=== PATIENT | male | born 1955 | race Caucasian/White ===

== ENCOUNTER 2025-04-02 14:01 | Emergency (ER) | payer MEDICARE, BC ==
[~2025-04-02] VITALS: Ht 180.3 cm; Wt 82.0 kg
[2025-04-02 14:26] VITALS: BP 170/72; PULSE 36; TEMP 97.7; O2SAT 98
[2025-04-02] MEDS: ketorolac trometh 15mg/ml vial 15 MG/ML ML IM ONE (16:09)
[2025-04-02 17:12] VITALS: RESP 16
[2025-04-02] MEDS ORDERED: NAPR-56 PO (18:07)
[2025-04-02] MEDS ORDERED: CYCL-1 PO (18:07)
--- NOTE | 2025-04-02 18:09 | Physician Documentation ---
History of Present Illness ~ Chief Complaint: Neck pain Stated Complaint: NECK PAIN Time Seen by MD: 15:34 OK to notify your PCP?: Yes Source: patient Mode of Arrival: POV Exam Limitations: no limitations HPI 70-year-old male presents with posterior neck pain since yesterday after waking up. He denies any falls, injuries or trauma to his neck. He reports not being able to sleep very well or find a comfortable position. He reports having a history of bradycardia in his heart rate usually is in the 30s over 40s and this is normal for him. He said he sees a emergency medical services coordinator for this and they are not concerned at this time. He denies any fever, recent illness, chills, confusion, headache, vision change, malaise, nausea, vomiting, rash or pain in the lower neck or down the spine. Medication Reconciliation Allergies: Coded Allergies: codeine (Unverified Adverse Reaction, Unknown, itchy and nausea, 04/02/25) Scheduled Cyclobenzaprine* (Cyclobenzaprine*), 1 TAB PO Q8H Naproxen (Naproxen), 1 TAB PO Q12H Past Medical History Smoking Status: Never smoker Review of Systems All Other Systems at this time: Reviewed and Negative Physical Exam Vital Signs: RN Vital Signs have been reviewed: Yes, Temperature: 97.7, Heart Rate: 36, Respiratory Rate: 16, BP: 170/72, Pulse Oximetry: 98, Weight: 82.000 Oxygen Flow Rate: 0 Pulse Oximetry Reflects: adequate oxygenation Physical Exam General: Alert, no apparent distress. HEENT: PERRL, EOMI, no injection, or periorbital ecchymosis. moist mucous membranes. Head atraumatic no bony deformities. Neck: Good neck flexion, decreased rotation and extension with pain. No cervical lymphadenopathy. Muscle tenderness along upper trapezius muscle to the skull. No midline tenderness or step-offs. Respiratory: Lungs clear, no respiratory distress. Chest: No accessory muscle use. Cardiovascular: Regular rate and rhythm, no murmurs. Gastrointestinal: Soft, nontender, nondistended. Bowels sounds present. Extremities: Normal range of motion, no deformity. Neurologic: Oriented x4. Psychiatric: Normal mood and affect. Skin: Normal color, warm and dry. No edema, no ecchymosis or rashes. Progress Results/Orders Reviewed/noted all lab results: Yes Results/Orders Completed Orders - LUANA LEIVA [employer] OPERATOR Ketorolac Trometh 15mg/Ml Vial (Toradol (04/02/25 16:00) Cyclobenzaprine Tablet (Flexeril Tablet) (04/02/25 16:00) Vital Signs 04/02/25 04/02/25 04/02/25 14:26 16:09 17:12 Temp 97.7 Pulse 36 Resp 16 16 16 B/P (MAP) 170/72 Pulse Ox 98 O2 Flow Rate 0 Medical Decision Making Additional info obtained from: family Findings 70-year-old male presents with bilateral upper trapezius muscle tightness and pain. He states that he has not been able to sleep well due to the pain or find a comfortable position. He does not have any fever or other symptoms that would suggest meningitis. Physical exam shows tenderness to palpation in the upper trapezius muscle but no midline tenderness along C-spine vertebra. I gave him Flexeril and Toradol while here in the department for pain relief for which he did experience some relief of pain. When I returned to check on how his pain was doing, he was sitting back in a chair with his head more relaxed, with his eyes closed resting comfortably. He was requesting something stronger such as a narcotic for pain relief. He was verbally and visually agitated when I explained to him that that narcotics are not the standard of care for neck muscle spasms on initial visit. I sent prescriptions for Flexeril and naproxen to his pharmacy that he could pickle processor and start taking in the morning. We discussed using ice and heat therapy to help relax the muscles and that muscle spasms can take some time to fully resolve. He was told to follow up with his primary care provider in the next week and return back here for any new or worsening symptoms. Differential Dx:Considerations: Include: Discitis, DJD, Meningitis, Vertebral artery dissect. Departure Disposition: 01 HOME / SELF CARE / HOMELESS Impression: Primary Impression: Neck pain Condition: Stable Discharge Instructions: Cervical Sprain Additional Instructions: Please use Tylenol and prescribed naproxen for pain relief. You can use the cyclobenzaprine as needed for muscle spasms. Please do not operate any vehicles until you know how your body reacts to the Flexeril as this can make people drowsy. You can use ice and heat for pain relief as well. Follow up with her primary care provider within the next week and return back here for any new or worsening symptoms. Referrals: NO PRIMARY CARE PROVIDER (PCP) Prescriptions Naproxen (Naproxen) 500 Mg Tablet 1 TAB PO Q12H, #20 TAB Prov: LUANA LEIVA 04/02/25 Cyclobenzaprine* (Cyclobenzaprine*) 10 Mg Tablet 1 TAB PO Q8H for muscle spasms for 10 Days, #30 TAB 0 Refills Prov: LUANA LEIVA 04/02/25 Education Educated: Patient, Family Educated regarding: diagnosis, treatment, prognosis, need for follow up Signature Scribe Signature: . Attestation: Scribed for Luana Leiva by Luana White NP . 04/03/25 00:24 Parts of this note were created using [employer] voice recognition software program. While efforts were made to correct any mistakes made by this voice recognition software program, nonsensical phrases may remain in this note. In addition, there may be errors and syntax, grammar, content and spelling. LUANA LEIVA Apr 02, 2025 18:09
== END 2025-04-02 18:15 | disposition home or self-care (01) ==
LOC: ER 14:02
DX: M54.2 Cervicalgia (principal); Z88.5 Allergy status to narcotic agent
CPT/HCPCS: 96372; 99283; J1885